=== PATIENT | female | born 1950 | race African-American/Black ===

== ENCOUNTER 2025-10-28 10:50 | Outpatient (REF) | payer MEDICARE, SELFPAY ==
--- NOTE | 2025-10-28 11:00 | EMG_ITS ---
Chief complaint: Numbness Referred by:?Dr Rocha Procedure done: Left lower extremity NCS/EMG Left peroneal and tibial motor studies were performed with F responses and tibial H-reflex. Left superficial peroneal and sural sensory studies were performed and needle examination was performed. Findings: Left peroneal motor study revealed no response. Tibial amplitude was mildly diminished with borderline normal conduction velocity. Sural response was absent. Left superficial peroneal amplitude was diminished. Left peroneal F response was absent. Tibial H-reflex was absent. 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 [place] [id number] 1 extremity MTDD
== END 2025-10-28 10:51 | disposition home or self-care (01) ==
LOC: HO.NEURO 10:50
PROVIDERS: PCP Hospitalist; Visit Provider Neurological Surgery
DX: M48.062 Spinal stenosis, lumbar region with neurogenic claudication (principal); R20.0 Anesthesia of skin
CPT/HCPCS: 95886; 95909

== ENCOUNTER → 2025-10-28 11:00 | Outpatient (BNV) | payer MEDICARE, SELFPAY | PROVIDERS: PCP Hospitalist; Visit Provider Psychiatry & Neurology Neurology | DX: G57.82 Other specified mononeuropathies of left lower limb (principal) | CPT/HCPCS: 95886; 95908 ==